=== PATIENT | female | born 1960 | race African-American/Black ===

== ENCOUNTER 2022-09-20 10:53 | Emergency (ER) | payer MEDICAID, SELFPAY ==
[2022-09-20 11:04] VITALS: BP 114/95; PULSE 100; RESP 16; TEMP 36.7; O2SAT 98
--- NOTE | 2022-09-20 11:15 | DI.RAD_ITS ---
Exam(s) XR SHOULDER RT COMPLETE 2+V EXAM: XR SHOULDER RT COMPLETE 2+V CLINICAL HISTORY: pain. TECHNIQUE: 2D digital imaging was performed. Five views. COMPARISON: No exams were available for comparison FINDINGS: BONES: No acute fracture is present. No bony destructive lesion is seen. JOINTS: No dislocation present. SOFT TISSUE: Normal. IMPRESSION: Unremarkable radiographs of the right shoulder. DATA REPOSITORY: RADIATION DOSE DELIVERED:
--- NOTE | 2022-09-20 12:11 | ED.GENADUL_ITS ---
Discharge Plan Disposition Patient Disposition: Home Discharge Details Clinical Impression: Right shoulder strain Primary Care Provider: Ananya,Local ED Provider: Jak Wakefield Home Meds and New Rx's Prescriptions: New diclofenac potassium 50 mg tablet 50 mg PO TID PRN (Reason: pain) Qty: 15 0RF Discharge Instructions Instructions: Shoulder Sprain (ED) Additional Instructions: At this time your radiological imaging was unremarkable for any acute findings. I suspect ligamentous or muscular injury to your right shoulder. Please use the sling as needed for comfort but remove 3-4 times daily and perform gentle range of motion as discussed. You may continue to use [id number] acetaminophen along with the prescribed NSAID that I gave you. Please do not take any further Advil or Motrin or aspirin while on the prescription medication. Please follow- up with your local primary care provider or orthopedist when you return home for reassessment and referral as needed. Referrals: Primary Care Provider [Outside] - 1 week Discharge Data Discharge Date/Time-TO BE ENTERED AT DEPARTURE: 09/20/22 12:32 Medical Decision Making Patient presenting to the emergency department for chief complaint of right shoulder pain. Patient states this is been gone for the past 5 days. She was recently attending a and moving stuff but denies any known injury or trauma. Patient states no past medical history and states she is not on any medications. Physical exam shows patient with almost exaggerated pain response to even light palpation of any of the soft tissue of the shoulder. Patient unwilling to even move shoulder slightly due to her reported pain. Patient's history of no trauma with her pain response does not seem to match so we will perform radiological imaging to rule out occult or nonreported fracture or injury. Pending results will give diclofenac. Reviewed radiological imaging and radiologist interpretation that shows no acute findings noted. Patient placed in sling and further prescribed NSAIDs to use for pain and discomfort and recommended when she returns home to follow-up with primary care provider or orthopedist if pain continues for consideration of MRI imaging. After discussion of diagnosis and plan of care patient has no further needs, questions, or concerns and states clear understanding to return to the emergency department for any worsening symptoms. This documentation was generated using [employer] system, please disregard any oddities of phrase or misspellings. Imaging Data Radiologic Study: Imaging: X-Ray Radiologist's impression: Exam(s) XR SHOULDER RT COMPLETE 2+V EXAM: XR SHOULDER RT COMPLETE 2+V CLINICAL HISTORY: pain. TECHNIQUE: 2D digital imaging was performed. Five views. COMPARISON: No exams were available for comparison FINDINGS: BONES: No acute fracture is present. No bony destructive lesion is seen. JOINTS: No dislocation present. SOFT TISSUE: Normal. IMPRESSION: Unremarkable radiographs of the right shoulder. HPI General Mode of arrival: ambulatory . Date/Time Provider Initiated Documentation: 09/20/22 11:10 . Limitations to Documentation: no limitations . Information obtained by: patient and RN notes reviewed . History of Present Illness 62 year old F presents to the emergency department with the chief complaint of Right shoulder pain, described as moderate, with intensity rated at 7. Quality is described as aching and sharp, and is localized to the right and upper extremity. Patient distal. Patient started experiencing this day(s) (5) and it has been constant. Immobilization improves symptom(s), Movement worsens symptoms . Patient notes no other symptoms.. Patient did receive the following treatments prior to arrival, none Related Data Home Medications Medication Instructions Recorded Confirmed diclofenac potassium 50 mg tablet 50 mg PO TID PRN pain #15 tabs 09/20/22 Previous Rx's Medication Instructions Recorded diclofenac potassium 50 mg tablet 50 mg PO TID PRN pain #15 tabs 09/20/22 Allergies Allergy/AdvReac Type Severity Reaction Status Date / Time Penicillins Allergy Unverified 09/20/22 11:09 General Stated Complaint: Orthopedic ALAYAN: 4 Review of Systems Narrative: 6 systems reviewed and unremarkable except what is marked below. ENT Ears, Nose, Mouth, and Throat: Denies neck pain Musculoskeletal Musculoskeletal: Reports as per HPI, Reports arthralgias, Denies joint swelling, Reports limited range of motion, Denies neck pain, Denies numbness and Denies tingling Integumentary/Breasts Skin/Breast: Denies erythema and Denies wounds Neurologic Neurologic: Denies numbness and Denies tingling PFSH All Active Problems Right shoulder strain (Acute) Social History Smoking/Tobacco Use Status: Never Smoking risk assessment performed?: Yes Do you feel safe at home: Yes Do you feel safe in your relationship?: Yes Exam Const General: cooperative and not ill appearing Orientation: alert, awake and oriented x3 HENMT Mouth: moist mucous membranes Resp Effort & Inspection: normal respiratory effort, able to speak in complete sente nces and no respiratory distress Cardio Rate: regular rate Rhythm: regular rhythm Pulses: normal peripheral pulses Skin General skin exam: no rashes or lesions noted Neuro General: patient alert, patient awake, patient oriented x3, moves all extremities and no focal motor deficits Sensory Exam: no sensory deficits noted Extrem General: normal exam except as noted Right upper extremity: shoulder/upper arm Details: normal to inspection, tenderness Location: over the subacromial bursa and over the deltoid bursa, axillary nerve sensory function normal and abnormal ROM Details: held in an abnormal fashion Details: in ABduction and in internal rotation, pain with active ROM and pain with passive ROM; no abrasions and no lacerations, elbow/forearm Details: normal to inspection; no tenderness, wrist Details: normal to inspection and hand Details: normal to inspection Course Vital Signs Vital signs: Vital Signs Temperature 36.7 C 09/20/22 11:04 Pulse 100 H 09/20/22 11:04 Respiratory Rate 16 09/20/22 11:04 Blood Pressure 114/95 H 09/20/22 11:04 Pulse Oximetry 98 09/20/22 11:04 Temperature 36.7 C 09/20/22 11:04 Temperature Source Temporal Artery Scan 09/20/22 11:04 Pulse 100 H 09/20/22 11:04 Respiratory Rate 16 09/20/22 11:04 Respiratory Effort Normal 09/20/22 11:09 Blood Pressure 114/95 H 09/20/22 11:04 Blood Pressure Position Sitting 09/20/22 11:04 Pulse Oximetry 98 09/20/22 11:04 Oxygen Delivery Method Room Air 09/20/22 11:04 Oxygen Flow Rate 0 09/20/22 11:04 Pain Level 10 09/20/22 11:04
== END 2022-09-20 12:32 | disposition home or self-care (01) ==
PROVIDERS: Emergency Provider Nurse Practitioner Family
DX: S46.911A Strain of unspecified muscle, fascia and tendon at shoulder and upper arm level, right arm, initial encounter (principal); X58.XXXA Exposure to other specified factors, initial encounter
CPT/HCPCS: 99283; 73030